=== PATIENT | male | born 1995 | race Caucasian/White ===

== ENCOUNTER 2019-01-08 19:48 | Inpatient (IN) ==
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
[2019-01-08] MEDS ORDERED: Nicotine 21 MG PATCH.TD24 TD STA (20:52)
[2019-01-08] MEDS ORDERED: Cefepime HCl 1,000 MG in Water for inj. (sterile) 10 ML IVP STA (20:52)
[2019-01-08 21:09] LABS: Bilirubin,Urine Negative (Negative); Blood,Urine Negative (Negative); Clarity,Urine Clear (Clear); Color,Urine Yellow (Yellow); Glucose,Urine (UA) Normal (Normal); Ketones,Urine Negative (Negative); Leukocyte Esterase,Urine Negative (Negative); Nitrite,Urine Negative (Negative); PH,Urine 6.5 pH Units (5.0-8.0); Protein,Urine Negative (Neg-Trace); Specific Gravity,Urine 1.024 (1.010-1.025); Urobilinogen,Urine Normal (Normal)
[2019-01-08 21:11] LABS: Basophils % 0.2 %; Eosinophils % 0.1 %; Hematocrit 49.6 % (37.5-50.1); Hemoglobin 17.3 g/dL (12.9-16.9); Immature Granulocytes % 0.3 % (0-4); Lymphocytes # 1.4 K/mcL (0.6-4.6); Lymphocytes % 12.3 %; Mean Corpuscular HGB Conc 34.9 g/dL (31.6-35.5); Mean Corpuscular Hemoglobin 30.5 pg (28.0-33.3); Mean Corpuscular Volume 87.3 fL (83.0-100.0); Mean Platelet Volume 11.3 fL (9.4-12.4); Monocytes # 1.3 K/mcL (0.0-1.3); Monocytes % 11.4 %; Neutrophils # 8.4 K/mcL (1.6-8.9); Platelet Count 275 K/mcL (140-400); Red Blood Count 5.68 M/mcL (4.19-5.50); Red Cell Distribution Width 12.9 % (11.5-14.5); Segmented Neutrophils % 75.7 %
[2019-01-08 21:20] LABS: Amphetamine Screen,Urine Negative ng/mL (Cutoff=1000); Barbiturate Screen,Urine Negative ng/mL (Cutoff=200); Benzodiazepines Screen,Urine Negative ng/mL (Cutoff=200); Cannabinoid Screen,Urine Positive ng/mL (Cutoff = 50); Cocaine Screen,Urine Negative ng/mL (Cutoff= 300); Opiate Screen,Urine Negative ng/mL (Cutoff=300); Phencyclidine Screen,Urine Negative ng/mL (Cutoff=25)
[2019-01-08 21:26] LABS: Acetaminophen < 10 mcg/mL (10-20); BUN/Creatinine Ratio 8 (6-26); Blood Urea Nitrogen 7 mg/dL (6-20); Calcium 10.3 mg/dL (8.6-10.3); Carbon Dioxide 29 mEq/L (23-29); Chloride 104 mEq/L (98-107); Ethanol < 10 mg/dL (Less than 10); Glucose 86 mg/dL (70-105); Osmolality,Calculated 281 (280-300); Potassium 3.6 mEq/L (3.5-5.1); Salicylate < 2.5 mg/dL (15.0-30.0); Sodium 137 mEq/L (136-145); eGFR For African Americans > 60 (> 60); eGFR For Non-African Americans > 60 (> 60)
--- NOTE | 2019-01-08 21:52 | Emergency Department Note ---
Disposition Clinical Impression: Suicidal ideation Disposition: Admitted As Inpatient Condition: Fair Time of Disposition: 23:14 General Adult HPI - General Chief complaint: ED Psychiatric Symptoms Stated complaint: SI/TRIED TO COMMIT SUICIDE Time Seen by Provider: 01/08/19 19:56 Source: patient, family Mode of arrival: ambulatory Limitations: no limitations Nursing Notes Reviewed: Yes Vital Signs Reviewed: Yes - History of Present Illness HPI Narrative: 23-year-old male no significant past medical history presenting for suicidal ideation and attempt. Patient apparently she is on his girlfriend approximately a week ago it has been suicidal since. Today at work he grabbed a grinding machine operator knife and try to cut his throat. He had a be tackled to the ground to get it removed from him. Patient denies any homicidal ideation. He does state a few days ago he had some auditory and visual hallucinations with those are now gone. Has never been admitted for this before. He does smoke marijuana but denies any other ingestions. Pain Scale: 0 - Related Data Allergies Allergy/AdvReac Type Severity Reaction Status Date / Time bacitracin Allergy Rash Verified 01/08/19 20:00 [From Neosporin ([id number])] Neomycin Allergy Rash Verified 01/08/19 20:00 [From Neosporin ([id number])] polymyxin B Allergy Rash Verified 01/08/19 20:00 [From Neosporin ([id number])] All systems ED: reviewed and negative except as stated. Constitutional: Denies: fever Eyes: Reports: as per HPI ENT ED: Reports: as per HPI Cardiovascular: Denies: chest pain Respiratory: Denies: dyspnea Gastrointestinal: Reports: as per HPI Genitourinary: Reports: as per HPI Musculoskeletal: Reports: as per HPI Integumentary: Reports: as per HPI Neurological: Reports: as per HPI Psychiatric: Reports: suicidal thoughts. Denies: homicidal thoughts Endocrine: Reports: as per HPI Hematological/Lymphatic: Reports: as per HPI Allergic/Immunologic: Reports: as per HPI Past Medical History - Past Medical History Attestation: Yes The following information was validated with the patient. Medical history: Reports: no medical history Psychiatric history: Reports: anxiety, depression - Social History Smoking Status: Current every day smoker Smokeless Tobacco Status: No Alcohol use: Reports: heavy Drug use: Reports: marijuana Physical Exam - General Limitations: no limitations General appearance: alert, in no apparent distress - Head Head exam: atraumatic, normocephalic, normal inspection - Eye Eye exam: Absent: scleral icterus - ENT ENT exam: mucous membranes moist - Neck Neck exam: Present: full ROM - Chest Chest inspection: Present: symmetric chest wall rise - Respiratory Respiratory exam: Present: normal lung sounds bilaterally. Absent: respiratory distress, wheezes - Cardiovascular Cardiovascular exam: Present: normal rhythm, tachycardia, normal heart sounds - Abdominal Exam Abdominal exam: Present: soft, Non-Tender. Absent: distention, guarding, rebound - Extremities Exam Extremities exam: Present: full ROM - Neurological Exam Neurological exam: Present: alert, oriented X3 - Psychiatric Psychiatric exam: Present: depressed, flat affect, suicidal ideation - Skin Skin exam: Present: warm, intact Course Course Narrative: 22-year-old male presenting for suicidal ideation and attempt. In the room he is alert and oriented 3 and hemodynamically stable. Physical exam is benign. Patient has no medical concerns or complaints at this time. We will obtain medical screening labs, urine analysis and consult our psychiatric services. Patient will be pink slipped. Disposition pending. - Reevaluation(s) Reevaluation #1: Patient has been evaluated by psychiatry and deemed needing inpatient admission. At this time patient remains alert and oriented 3 and hemodynamically stable. Patient will be admitted at this time. Vital Signs Temperature 98.4 F 01/08/19 20:00 Pulse Rate 113 01/08/19 20:00 Respiratory Rate 20 01/08/19 20:00 Blood Pressure 155/91 01/08/19 20:00 O2 Sat by Pulse Oximetry 97 01/08/19 20:00 Temperature 98.4 F 01/08/19 20:00 Pulse Rate 113 01/08/19 20:00 Respiratory Rate 20 01/08/19 20:00 Blood Pressure 155/91 01/08/19 20:00 O2 Sat by Pulse Oximetry 97 01/08/19 20:00 Oxygen Delivery Oxygen Delivery Room Air Medical Decision Making - Lab Data Result diagrams: 01/08/19 20:29 01/08/19 20:29 Lab Results 01/08/19 01/08/19 01/08/19 Range/Units 20:24 20:24 20:29 WBC 11.0 (4.3-11.1) K/mcL RBC 5.68 H (4.19-5.50) M/mcL Hgb 17.3 H (12.9-16.9) g/dL Hct 49.6 (37.5-50.1) % MCV 87.3 (83.0-100.0) fL MCH 30.5 (28.0-33.3) pg MCHC 34.9 (31.6-35.5) g/dL RDW 12.9 (11.5-14.5) % Plt Count 275 (140-400) K/mcL MPV 11.3 (9.4-12.4) fL Immature Gran % 0.3 (0-4) % Seg Neutrophils % 75.7 % Lymphocytes % 12.3 % Monocytes % 11.4 % Eosinophils % 0.1 % Basophils % 0.2 % Neutrophils # 8.4 (1.6-8.9) K/mcL Lymphocytes # 1.4 (0.6-4.6) K/mcL Monocytes # 1.3 (0.0-1.3) K/mcL Eosinophils # 0.0 (0.0-0.6) K/mcL Basophils # 0.0 (0.0-0.2) K/mcL Sodium (136-145) mEq/L Potassium (3.5-5.1) mEq/L Chloride (98-107) mEq/L Carbon Dioxide (23-29) mEq/L BUN (6-20) mg/dL Creatinine (0.70-1.30) mg/dL Est GFR ( Amer) (> 60) Est GFR (Non-Af Amer) (> 60) BUN/Creatinine Ratio (6-26) Glucose (70-105) mg/dL Calculated Osmolality (280-300) Calcium (8.6-10.3) mg/dL Urine Color Yellow (Yellow) Urine Clarity Clear (Clear) Urine pH 6.5 (5.0-8.0) pH Units Ur Specific [place] 1.024 (1.010-1.025) Urine Protein Negative (Neg-Trace) mg/dL Urine Glucose (UA) Normal (Normal) mg/dL Urine Ketones Negative (Negative) mg/dL Urine Blood Negative (Negative) Urine Nitrite Negative (Negative) Urine Bilirubin Negative (Negative) Urine Urobilinogen Normal (Normal) mg/dL Ur Leukocyte Esterase Negative (Negative) Salicylates (15.0-30.0) mg/dL Urine Opiates Screen Negative (Pvfprl=363) ng/mL Ur Buprenorphine Scrn Negative (Cutoff=5) ng/mL Acetaminophen (10-20) mcg/mL Ur Barbiturates Screen Negative (Iwyfar=023) ng/mL Ur Phencyclidine Scrn Negative (Cutoff=25) ng/mL Ur Amphetamines Screen Negative (Xmwnkz=9126) ng/mL U Benzodiazepines Scrn Negative (Oidyqe=090) ng/mL Urine Cocaine Screen Negative (Cutoff= 300) ng/mL U Marijuana (THC) Screen Positive H (Cutoff = 50) ng/mL Ur Drug Screen Interp See Below Ethyl Alcohol (Less than 10) mg/dL 01/08/19 Range/Units 20:29 WBC (4.3-11.1) K/mcL RBC (4.19-5.50) M/mcL Hgb (12.9-16.9) g/dL Hct (37.5-50.1) % MCV (83.0-100.0) fL MCH (28.0-33.3) pg MCHC (31.6-35.5) g/dL RDW (11.5-14.5) % Plt Count (140-400) K/mcL MPV (9.4-12.4) fL Immature Gran % (0-4) % Seg Neutrophils % % Lymphocytes % % Monocytes % % Eosinophils % % Basophils % % Neutrophils # (1.6-8.9) K/mcL Lymphocytes # (0.6-4.6) K/mcL Monocytes # (0.0-1.3) K/mcL Eosinophils # (0.0-0.6) K/mcL Basophils # (0.0-0.2) K/mcL Sodium 137 (136-145) mEq/L Potassium 3.6 (3.5-5.1) mEq/L Chloride 104 (98-107) mEq/L Carbon Dioxide 29 (23-29) mEq/L BUN 7 (6-20) mg/dL Creatinine 0.86 (0.70-1.30) mg/dL Est GFR ( Amer) > 60 (> 60) Est GFR (Non-Af Amer) > 60 (> 60) BUN/Creatinine Ratio 8 (6-26) Glucose 86 (70-105) mg/dL Calculated Osmolality 281 (280-300) Calcium 10.3 (8.6-10.3) mg/dL Urine Color (Yellow) Urine Clarity (Clear) Urine pH (5.0-8.0) pH Units Ur Specific [place] (1.010-1.025) Urine Protein (Neg-Trace) mg/dL Urine Glucose (UA) (Normal) mg/dL Urine Ketones (Negative) mg/dL Urine Blood (Negative) Urine Nitrite (Negative) Urine Bilirubin (Negative) Urine Urobilinogen (Normal) mg/dL Ur Leukocyte Esterase (Negative) Salicylates < 2.5 L (15.0-30.0) mg/dL Urine Opiates Screen (Fhllbr=676) ng/mL Ur Buprenorphine Scrn (Cutoff=5) ng/mL Acetaminophen < 10 L (10-20) mcg/mL Ur Barbiturates Screen (Vdaeot=985) ng/mL Ur Phencyclidine Scrn (Cutoff=25) ng/mL Ur Amphetamines Screen (Pgmwzq=4414) ng/mL U Benzodiazepines Scrn (Znfnav=027) ng/mL Urine Cocaine Screen (Cutoff= 300) ng/mL U Marijuana (THC) Screen (Cutoff = 50) ng/mL Ur Drug Screen Interp Ethyl Alcohol < 10 (Less than 10) mg/dL Attestation Statement - Attestation Attestation: I have seen this patient with the resident physician, I have personally evaluated this patient. I had reviewed the chart and document dictation by the resident physician and aM in agreement with the information documented by the resident physician. Please see documentation by the resident physician for complete chart including past medical history, family medical history, review of systems, current history and physical and laboratory and imaging studies. I was present for all procedures, provided direct supervision for all procedures, was present for the entirety of all procedures and provided direct guidance during the procedures. Please see documentation by the resident physician for any procedures performed. I have reviewed all interpretations of EKGs, and reviewed all EKGs performed on patient's as well. I have also reviewed reports of imaging as provided by radiology.
[2019-01-08] MEDS ORDERED: traZODone 50 MG TABLET PO PRN (23:52)
[2019-01-08] MEDS ORDERED: *HR* LORazepam 1 MG TABLET PO PRN (23:52)
[2019-01-08] MEDS ORDERED: Mag Hydrox/Al Hydrox/Simeth 30 ML UDC PO PRN (23:52)
[2019-01-08] MEDS ORDERED: *HR* LORazepam 2 MG/ML VIAL IM PRN (23:52)
[2019-01-08] MEDS ORDERED: Haloperidol Lactate 5 MG/ML VIAL IM PRN (23:52)
[2019-01-08] MEDS ORDERED: MOM Conc 10 ML UD.LIQ PO PRN (23:52)
[2019-01-08] MEDS ORDERED: Acetaminophen 325 MG TABLET PO PRN (23:52)
[2019-01-09] MEDS: Nicotine 21 MG PATCH.TD24 TD SCH (10:33)
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
[2019-01-09] MEDS: hydrOXYzine pamoate 25 MG CAPSULE PO PRN ×2 (11:06→17:26)
[2019-01-09] MEDS ORDERED: cloNIDine HCl 0.1 MG TABLET PO PRN (20:12)
[2019-01-10] MEDS: Nicotine 21 MG PATCH.TD24 TD SCH (09:03)
[2019-01-10] MEDS: hydrOXYzine pamoate 25 MG CAPSULE PO PRN ×2 (09:12→20:49)
--- NOTE | 2019-01-10 09:33 | Psychiatry Progress Note ---
Date of Encounter: 01/10/19 Time of Encounter: 07:40 Subjective Interval history: Patient has had a very odd affect since admission. He often stares off. He gives odd answers to questions. For example when I asked him today how he was doing he stated "how are you doing?". He then went on a tangent about not being able to believe people. He appears to have perhaps some paranoia and slight responding to internal stimuli. Last night he told staff that he had been taking synthetic hair when however when asked about that this morning he said he lied to staff about it but could not give me any explanation of why he would have done that. He says he has been vomiting and having diarrhea nonstop however there is no indication of this from staff. He is to report depression and suicidal ideations. Review of Systems Psychiatric: Reports: depression, abnormal sleep pattern, suicidal ideation, auditory hallucinations, anhedonia, hopelessness. Denies: homicidal ideation, visual hallucinations Results - Vital Signs Vital Signs: Temp Pulse Resp BP Pulse Ox 97.6 F 104 16 136/94 97 01/10/19 09:01/10/19 09:00 01/10/19 09:01/10/19 09:00 01/10/19 09:00 Assessment and Plan (1) Major depression Current visit: Yes Status: Acute Plan: Continue hospitalization, Close observation, Suicide Precautions per unit protocol, Encourage participation in unit milieu, Group Therapy, Monitor sleep, Monitor appetite Additional Plan: Patient appears to be having psychotic symptoms. Unclear if this is related to his depression with psychotic features or if this is due to methamphetamine use. We will start Risperdal 1 mg by mouth daily at bedtime to address his symptoms. Encourage group attendance. Therapist will work on linkage. Risks, benefits, side effects, alternatives discussed w/pt: Yes Patient agreeable to treatment: Yes Qualifiers: Major depression recurrence: single episode Active/Remission status: currently active Major depression episode severity: severe Psychotic features: without psychotic features Qualified Code(s): F32.2 - Major depressive disorder, single episode, severe without psychotic features Consult Discharge Plan - Plan Referrals: NONE,PCP [Primary Care Provider] - Psychiatry Exam - Constitutional Vitals: Temp Pulse Resp BP Pulse Ox 97.6 F 104 16 136/94 97 01/10/19 09:00 01/10/19 09:00 01/10/19 09:00 01/10/19 09:00 01/10/19 09:00 General appearance: disheveled, thin - Musculoskeletal Gait: slow Station: stooped Strength & Tone: mild weakness - Psychiatric Patient Orientation: Yes Person, Yes Time, Yes Place Level of alertness: Alert Behavior: guarded, suspicious, withdrawn Psychomotor activity: Slowed Eye Contact: Minimal Contact Mood Description: Other Patient description of mood: "I do not know how are you" Affect description: blunted Speech Volume: Soft/Quiet Speech pattern: slowed Language & Vocabulary: limited Thought Process: Thought Blocking Thought Content: Yes Suicidal ideation, Yes Paranoid delusion Perceptual Disturbances: Yes Auditory hallucinations Attention Span Ability: Unable to Focus, Unable to Sustain Attention Memory Description: Immediate Impaired Patient Reliability: Questionable Historian Fund of knowledge: Yes below average Intelligence Estimate: Below Average Judgment: Poor Insight: None
[2019-01-10] MEDS ORDERED: risperiDONE 1 MG TABLET PO SCH (21:00)
[2019-01-11] MEDS: Nicotine 21 MG PATCH.TD24 TD SCH (08:19)
[2019-01-11 08:57] VITALS: BP 135/83
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
== END 2019-01-11 11:20 | disposition home or self-care (01) | DRG 885 ==
LOC: EMEROOARM 19:48 → 1ANU 23:21
PROVIDERS: ADMIT Psychiatry & Neurology Psychiatry; ATTEND Psychiatry & Neurology Psychiatry

== ENCOUNTER 2021-08-14 23:36 | Inpatient (IN) ==
[2021-08-15 00:35] LABS: Basophils % 0.4 %; Eosinophils # 0.1 K/mcL (0.0-0.6); Eosinophils % 1.3 %; Hemoglobin 17.4 g/dL (12.9-16.9); Immature Granulocytes % 0.3 % (0-4); Lymphocytes # 2.1 K/mcL (0.6-4.6); Lymphocytes % 20.1 %; Mean Corpuscular HGB Conc 34.8 g/dL (31.6-35.5); Mean Corpuscular Hemoglobin 30.8 pg (28.0-33.3); Mean Corpuscular Volume 88.5 fL (83.0-100.0); Mean Platelet Volume 11.9 fL (9.4-12.4); Monocytes # 1.2 K/mcL (0.0-1.3); Monocytes % 12.1 %; Neutrophils # 6.7 K/mcL (1.6-8.9); Platelet Count 232 K/mcL (140-400); Red Blood Count 5.65 M/mcL (4.19-5.50); Red Cell Distribution Width 12.6 % (11.5-14.5); Segmented Neutrophils % 65.8 %; White Blood Count 10.2 K/mcL (4.3-11.1)
[2021-08-15 00:48] LABS: Bacteria,Urine Few per hpf (None-Few); Bilirubin,Urine Negative (Negative); Blood,Urine Negative (Negative); Clarity,Urine Clear (Clear); Color,Urine Yellow (Yellow); Glucose,Urine (UA) Normal (Normal); Ketones,Urine Trace mg/dL (Negative); Leukocyte Esterase,Urine Negative (Negative); Mucus,Urine Moderate per lpf (None-Few); Nitrite,Urine Negative (Negative); Protein,Urine 50 mg/dL (Neg-Trace); RBC,Urine 0-3 per hpf (0-3); Squamous Epithelial Cell,Urine Few per hpf (None-Few)
[2021-08-15 00:54] LABS: Acetaminophen < 10 mcg/mL (10-20); BUN/Creatinine Ratio 14 (6-26); Blood Urea Nitrogen 13 mg/dL (6-20); Calcium 9.8 mg/dL (8.6-10.3); Carbon Dioxide 26 mEq/L (23-29); Chloride 104 mEq/L (98-107); Ethanol < 10 mg/dL (Less than 10); Glucose 112 mg/dL (70-105); Osmolality,Calculated 289 (280-300); Potassium 3.7 mEq/L (3.5-5.1); Salicylate < 2.5 mg/dL (15.0-30.0); Sodium 139 mEq/L (136-145); eGFR For African Americans > 60 (> 60); eGFR For Non-African Americans > 60 (> 60)
[2021-08-15] MEDS ORDERED: Tdap (Boostrix) Vaccine 0.5 ML SYRINGE IM ONE (00:54)
[2021-08-15 01:08] LABS: Amphetamine Screen,Urine Negative ng/mL (Cutoff=1000); Barbiturate Screen,Urine Negative ng/mL (Cutoff=200); Benzodiazepines Screen,Urine Negative ng/mL (Cutoff=200); Cannabinoid Screen,Urine Positive ng/mL (Cutoff = 50); Cocaine Screen,Urine Negative ng/mL (Cutoff= 300); Opiate Screen,Urine Negative ng/mL (Cutoff=300); Phencyclidine Screen,Urine Negative ng/mL (Cutoff=25)
[2021-08-15 05:00] LABS: Influenza A PCR Negative (Negative); Influenza B PCR Negative (Negative); Resp. Syncytial Virus PCR Negative (Negative); SARS-CoV-2 by PCR (In House) Negative (Negative)
[2021-08-15] MEDS ORDERED: *HR* LORazepam 2 MG/ML VIAL IM PRN (05:15)
[2021-08-15] MEDS ORDERED: haloperidoL 5 MG TABLET PO PRN (05:15)
[2021-08-15] MEDS ORDERED: *HR* LORazepam 1 MG TABLET PO PRN (05:15)
[2021-08-15] MEDS ORDERED: Haloperidol Lactate 5 MG/ML VIAL IM PRN (05:15)
[2021-08-15] MEDS ORDERED: Mag Hydrox/Al Hydrox/Simeth 30 ML UDC PO PRN (09:06)
[2021-08-15] MEDS ORDERED: MOM Conc 10 ML UD.LIQ PO PRN (09:06)
[2021-08-15] MEDS: Ibuprofen 400 MG TABLET PO PRN (09:23)
[2021-08-15] MEDS: *HR* Buprenorphine HCl 8 MG TAB.SUBL SL SCH ×3 (09:37→11:41)
[2021-08-15] MEDS: Nicotine 21 MG PATCH.TD24 TD SCH (10:50)
[2021-08-15] MEDS: hydrOXYzine pamoate 25 MG CAPSULE PO PRN (14:17)
[2021-08-15] MEDS ORDERED: risperiDONE 1 MG TABLET PO SCH (21:00)
[2021-08-16] MEDS: Folic Acid 1 MG TABLET PO SCH (09:26)
[2021-08-16] MEDS: Thiamine (B-1) 100 MG TABLET PO SCH (09:26)
[2021-08-16] MEDS: Nicotine 21 MG PATCH.TD24 TD SCH (09:27)
[2021-08-16] MEDS: *HR* Buprenorphine HCl 8 MG TAB.SUBL SL SCH (09:29)
[2021-08-16] MEDS: Ibuprofen 400 MG TABLET PO PRN ×2 (14:31→22:33)
[2021-08-16] MEDS: hydrOXYzine pamoate 25 MG CAPSULE PO PRN (14:31)
[2021-08-16] MEDS: risperiDONE 1 MG TABLET PO SCH (21:26)
[2021-08-17] MEDS: Folic Acid 1 MG TABLET PO SCH (09:31)
[2021-08-17] MEDS: Thiamine (B-1) 100 MG TABLET PO SCH (09:31)
[2021-08-17] MEDS: Nicotine 21 MG PATCH.TD24 TD SCH (09:31)
[2021-08-17] MEDS: *HR* Buprenorphine HCl 2 MG SUBLINGUAL TABLET SL SCH (09:34)
[2021-08-17] MEDS: *HR* Buprenorphine HCl 8 MG TAB.SUBL SL SCH (10:03)
[2021-08-17] MEDS: Ibuprofen 400 MG TABLET PO PRN ×2 (15:42→21:03)
[2021-08-17] MEDS: hydrOXYzine pamoate 25 MG CAPSULE PO PRN ×2 (15:50→21:02)
[2021-08-17] MEDS: traZODone 50 MG TABLET PO PRN (21:02)
[2021-08-17] MEDS: risperiDONE 1 MG TABLET PO SCH (21:02)
[2021-08-18] MEDS: risperiDONE 1 MG TABLET PO SCH ×2 (08:43→20:14)
[2021-08-18] MEDS: Folic Acid 1 MG TABLET PO SCH (08:43)
[2021-08-18] MEDS: Nicotine 21 MG PATCH.TD24 TD SCH (08:43)
[2021-08-18] MEDS: Thiamine (B-1) 100 MG TABLET PO SCH (08:43)
[2021-08-18] MEDS: *HR* Buprenorphine HCl 2 MG SUBLINGUAL TABLET SL SCH (08:48)
[2021-08-18] MEDS: *HR* Buprenorphine HCl 8 MG TAB.SUBL SL SCH (09:08)
[2021-08-18] MEDS: Ibuprofen 400 MG TABLET PO PRN ×2 (09:16→17:18)
[2021-08-18 11:08] LABS: Basophils # 0.1 K/mcL (0.0-0.2); Basophils % 0.6 %; Eosinophils # 0.5 K/mcL (0.0-0.6); Eosinophils % 5.5 %; Hematocrit 51.4 % (37.5-50.1); Hemoglobin 17.6 g/dL (12.9-16.9); Immature Granulocytes % 0.2 % (0-4); Lymphocytes # 0.9 K/mcL (0.6-4.6); Lymphocytes % 10.6 %; Mean Corpuscular HGB Conc 34.2 g/dL (31.6-35.5); Mean Corpuscular Hemoglobin 30.7 pg (28.0-33.3); Mean Corpuscular Volume 89.5 fL (83.0-100.0); Mean Platelet Volume 11.6 fL (9.4-12.4); Monocytes % 11.6 %; Neutrophils # 6.3 K/mcL (1.6-8.9); Platelet Count 205 K/mcL (140-400); Red Blood Count 5.74 M/mcL (4.19-5.50); Red Cell Distribution Width 12.4 % (11.5-14.5); Segmented Neutrophils % 71.5 %; White Blood Count 8.8 K/mcL (4.3-11.1)
[2021-08-18 11:34] LABS: Alanine Aminotransferase 74 Units/L (7-52); Albumin 4.6 g/dL (3.5-5.7); Albumin/Globulin Ratio 1.8 (1.1-2.2); Alkaline Phosphatase 66 Units/L (34-104); Aspartate Amino Transferase 60 Units/L (13-39); BUN/Creatinine Ratio 14 (6-26); Bilirubin,Direct 0.1 mg/dL (0.0-0.2); Bilirubin,Indirect 0.3 mg/dL (0.0-1.0); Bilirubin,Total 0.4 mg/dL (0.3-1.0); Blood Urea Nitrogen 12 mg/dL (6-20); Calcium 9.7 mg/dL (8.6-10.3); Carbon Dioxide 27 mEq/L (23-29); Chloride 104 mEq/L (98-107); Chol/HDL Ratio 3.8 (0-4.9); Cholesterol 149 mg/dL (< 200); Globulin 2.6 g/dL (2.4-3.5); Glucose 105 mg/dL (70-105); HDL Cholesterol 39 mg/dL (40-59); LDL Cholesterol,Calculated 94 mg/dL (< 100); Osmolality,Calculated 288 (280-300); Potassium 4.2 mEq/L (3.5-5.1); Sodium 139 mEq/L (136-145); Total Protein 7.2 g/dL (6.4-8.9); Triglycerides 81 mg/dL (< 150); eGFR For African Americans > 60 (> 60); eGFR For Non-African Americans > 60 (> 60)
[2021-08-18 11:46] LABS: Thyroid Stimulating Hormone 0.582 mcIU/mL (0.340-5.600)
[2021-08-18 12:20] LABS: Hepatitis B Surface Antigen Nonreactive (Nonreactive)
[2021-08-18 12:50] LABS: Hepatitis A Antibody IgM Nonreactive (Nonreactive); Hepatitis B Core IgM Nonreactive (Nonreactive)
[2021-08-18 14:16] LABS: Hepatitis C Virus Antibody Reactive (Nonreactive)
[2021-08-18] MEDS: traZODone 50 MG TABLET PO PRN (20:15)
[2021-08-18] MEDS: hydrOXYzine pamoate 25 MG CAPSULE PO PRN (20:15)
[2021-08-19] MEDS: Nicotine 21 MG PATCH.TD24 TD SCH (08:17)
[2021-08-19] MEDS: *HR* Buprenorphine HCl 8 MG TAB.SUBL SL SCH (08:17)
[2021-08-19] MEDS: Folic Acid 1 MG TABLET PO SCH (08:17)
[2021-08-19] MEDS: Thiamine (B-1) 100 MG TABLET PO SCH (08:17)
[2021-08-19] MEDS: risperiDONE 1 MG TABLET PO SCH (08:18)
[2021-08-19] MEDS: Ibuprofen 400 MG TABLET PO PRN (09:04)
[2021-08-19 12:43] LABS: Bilirubin,Urine Negative (Negative); Blood,Urine Negative (Negative); Clarity,Urine Clear (Clear); Color,Urine Colorless (Yellow); Glucose,Urine (UA) Normal (Normal); Ketones,Urine Negative (Negative); Leukocyte Esterase,Urine Negative (Negative); Nitrite,Urine Negative (Negative); Protein,Urine Negative (Neg-Trace); Specific Gravity,Urine 1.008 (1.010-1.025); Urobilinogen,Urine Normal (Normal)
[2021-08-19 17:26] LABS: Chlamydia Trachomatis DNA Ur NOT DETECTED (Not Detect)
[2021-08-19] MEDS ORDERED: CefTRIAXone 1,000 MG VIAL IM ONE (19:00)
[2021-08-19] MEDS: Doxycycline 100 MG CAPSULE PO SCH (20:12)
[2021-08-19] MEDS: hydrOXYzine pamoate 25 MG CAPSULE PO PRN (20:12)
[2021-08-20] MEDS: Thiamine (B-1) 100 MG TABLET PO SCH (08:19)
[2021-08-20] MEDS: RisperiDAL 3 MG TABLET PO SCH (08:19)
[2021-08-20] MEDS: Folic Acid 1 MG TABLET PO SCH (08:19)
[2021-08-20] MEDS: *HR* Buprenorphine HCl 8 MG TAB.SUBL SL SCH (08:19)
[2021-08-20] MEDS: Doxycycline 100 MG CAPSULE PO SCH ×2 (08:19→20:02)
[2021-08-20] MEDS: risperiDONE 1 MG TABLET PO SCH (08:20)
[2021-08-20] MEDS: Ibuprofen 400 MG TABLET PO PRN ×2 (08:20→20:02)
[2021-08-20] MEDS: Nicotine 21 MG PATCH.TD24 TD SCH (08:23)
[2021-08-20] MEDS: hydrOXYzine pamoate 25 MG CAPSULE PO PRN (18:00)
[2021-08-20] MEDS: QUEtiapine Fumarate 25 MG TABLET PO PRN (20:02)
[2021-08-21] MEDS: *HR* Buprenorphine HCl 8 MG TAB.SUBL SL SCH (08:18)
[2021-08-21] MEDS: Nicotine 21 MG PATCH.TD24 TD SCH (08:18)
[2021-08-21] MEDS: RisperiDAL 3 MG TABLET PO SCH (08:18)
[2021-08-21] MEDS: Thiamine (B-1) 100 MG TABLET PO SCH (08:19)
[2021-08-21] MEDS: risperiDONE 1 MG TABLET PO SCH (08:19)
[2021-08-21] MEDS: Doxycycline 100 MG CAPSULE PO SCH ×2 (08:20→20:29)
[2021-08-21] MEDS: Folic Acid 1 MG TABLET PO SCH (08:20)
[2021-08-21] MEDS: Ibuprofen 400 MG TABLET PO PRN ×2 (11:45→21:44)
[2021-08-21] MEDS: hydrOXYzine pamoate 25 MG CAPSULE PO PRN (17:05)
[2021-08-21] MEDS: QUEtiapine Fumarate 25 MG TABLET PO PRN (20:29)
[2021-08-22] MEDS: *HR* Buprenorphine HCl 8 MG TAB.SUBL SL SCH (09:09)
[2021-08-22] MEDS: Thiamine (B-1) 100 MG TABLET PO SCH (09:10)
[2021-08-22] MEDS: Ibuprofen 400 MG TABLET PO PRN ×2 (09:10→23:44)
[2021-08-22] MEDS: Doxycycline 100 MG CAPSULE PO SCH ×2 (09:10→20:28)
[2021-08-22] MEDS: Folic Acid 1 MG TABLET PO SCH (09:10)
[2021-08-22] MEDS: Nicotine 21 MG PATCH.TD24 TD SCH (09:11)
[2021-08-22] MEDS: hydrOXYzine pamoate 25 MG CAPSULE PO PRN (12:53)
[2021-08-22] MEDS: QUEtiapine Fumarate 25 MG TABLET PO PRN (20:28)
[2021-08-23] MEDS: Folic Acid 1 MG TABLET PO SCH (08:30)
[2021-08-23] MEDS: Doxycycline 100 MG CAPSULE PO SCH ×2 (08:30→20:06)
[2021-08-23] MEDS: Thiamine (B-1) 100 MG TABLET PO SCH (08:30)
[2021-08-23] MEDS: *HR* Buprenorphine HCl 8 MG TAB.SUBL SL SCH (08:30)
[2021-08-23] MEDS: hydrOXYzine pamoate 25 MG CAPSULE PO PRN ×2 (08:35→14:43)
[2021-08-23] MEDS: Nicotine 21 MG PATCH.TD24 TD SCH (08:43)
[2021-08-23] MEDS ORDERED: Paliperidone Palmitate 234 MG/1.5 ML SYRINGE IM ONE (09:00)
[2021-08-23] MEDS: QUEtiapine Fumarate 25 MG TABLET PO PRN (20:06)
[2021-08-23] MEDS: Ibuprofen 400 MG TABLET PO PRN (22:09)
[2021-08-24 07:53] VITALS: BP 120/72; PULSE 114; TEMP 97.5; O2SAT 96
[2021-08-24] MEDS: Doxycycline 100 MG CAPSULE PO SCH (07:54)
[2021-08-24] MEDS: Folic Acid 1 MG TABLET PO SCH (07:54)
[2021-08-24] MEDS: *HR* Buprenorphine HCl 8 MG TAB.SUBL SL SCH (07:55)
[2021-08-24] MEDS: Thiamine (B-1) 100 MG TABLET PO SCH (07:55)
[2021-08-24] MEDS: Nicotine 21 MG PATCH.TD24 TD SCH ×2 (08:23→08:36)
[2021-08-24] MEDS: hydrOXYzine pamoate 25 MG CAPSULE PO PRN (11:21)
== END 2021-08-24 13:25 | disposition home or self-care (01) | DRG 751 ==
LOC: EMEROOARM 23:36 → 1ANU 08-15 05:10 → SUATTDRO 08-15 05:10 → 1ANU 08-15 05:50
PROVIDERS: ADMIT Psychiatry & Neurology Psychiatry; ATTEND Family Medicine